=== PATIENT | male | born 1955 | race Caucasian/White ===

== ENCOUNTER 2016-07-22 09:38 | Emergency (ER) | payer OTHER ==
[~2016-07-22] VITALS: Ht 177.8 cm; Wt 79.0 kg
[~2016-07-22 09:38] MED LIST: APRI0.372 PO; LORTA5 PO
[2016-07-22 09:41] VITALS: BP 126/89; PULSE 81; RESP 16; TEMP 97.8; O2SAT 97
[2016-07-22] MEDS ORDERED: APRI0.372 PO (09:58)
[2016-07-22] MEDS ORDERED: SODIUM CHLOR 0.9% 1000 ML INJ 1,000 ML IV SCH (10:15)
[2016-07-22] MEDS ORDERED: PANTOPRAZOLE SODIUM 40 MG VIAL IV PUSH ONE (10:15)
[2016-07-22] MEDS ORDERED: ONDANSETRON HCL 4 MG/2 ML VIAL IV PUSH ONE (10:15)
--- NOTE | 2016-07-22 10:23 | PD ---
HPI Chief Complaint: GI Complaint Time Seen by Provider: 09:52 Travel History International Travel<30 days: No Contact w/Intl Traveler<30days: No Traveled to known affect area: No History of Present Illness HPI 61-year-old male complains of dizziness, blurred vision, chest pain and abdominal pain. Patient states that he started having diarrhea with dark stool for the past 6 days. Patient started having dizziness chest pain and abdominal pain this morning. Patient states that the dizziness is transient this morning and with low vision. Patient states that he has some wiggling lines in front of his eyes also. Patient states that the blurred vision got better. Patient started having substernal chest discomfort this morning. Patient denies any pain radiation. Patient denies palpitation or diaphoresis. Patient started having abdominal cramping mid abdomen with nausea vomiting this morning. Patient denies any fever chills. Patient denies any dysuria or frequency. Patient denies any back pain. Patient has history of colitis in the past. Patient states that he was diagnosed with Campylobacter infection in the past. PFSH Past Medical History Arthritis: No Blood Disorders: No Anxiety: No Depression: No Heart Rhythm Problems: No Cancer: No Cardiac Catheterization: Yes Cardiovascular Problems: Yes (R CAROTID ANGIOPLASTY) High Cholesterol: No Chemotherapy: No Chest Pain: No Congestive Heart Failure: No Cerebrovascular Accident: No Coronary Artery Disease: Yes ("1996,angio balloon") Diminished Hearing: No Endocrine: No Gastrointestinal Disorders: Yes (GALL STONES/ COLITIS) Genitourinary: No Headaches: No Hypertension: No Immune Disorder: No Musculoskeletal: Yes ("problems with L2,L3 ,discs and bulging disc lower back"N , RIGHT KNEE PAIN) Neurologic: No Psychiatric: No Respiratory: No Integumentary: Yes (HX OF GLEZ SKIN GRAFTING) Immunizations Current: No Migraines: No Myocardial Infarction: No Radiation Therapy: No Seizures: No Influenza Vaccination: No PNEUMOCCOCAL Vaccine (Year): 2 Past Surgical History Abdominal Surgery: Yes (intussusception) AICD: No Appendectomy: Yes Arteriovenous Shunt: No Cardiac Surgery: No Cholecystectomy: Yes Ear Surgery: No Endocrine Surgery: No Eye Surgery: No Genitourinary Surgery: No Gynecologic Surgery: No Insulin Pump: No Joint Replacement: No Neurologic Surgery: No Oral Surgery: Yes Pacemaker: No Thoracic Surgery: No Other Surgery: Yes ("skin grafts from right thigh to 2nd,3rd,4rth & 5th digits of left hand") Social History Alcohol Use: Yes (OCCASSIONAL-beer, mix drinks) Tobacco Use: No (quit 20 yrs ago) Substance Use: No Allergies-Medications (Allergen,Severity, Reaction): Coded Allergies: No Known Allergies (Verified , 07/22/16) Reported Meds & Prescriptions Reported Meds & Active Scripts Active Reported Apriso (Mesalamine) 0.375 Gm Caper 1 Gm PO DAILY Review of Systems General / Constitutional: No: Fever Eyes: Positive: Blurred Vision, No: Visual changes HENT: No: Headaches Cardiovascular: Positive: Chest Pain or Discomfort Respiratory: No: Shortness of Breath Gastrointestinal: Positive: Nausea, Vomiting, Diarrhea, Abdominal Pain Genitourinary: No: Dysuria Musculoskeletal: No: Pain Skin: No Rash Neurologic: No: Weakness Psychiatric: No: Depression Endocrine: No: Polydipsia Hematologic/Lymphatic: No: Easy Bruising Physical Exam Narrative GENERAL: Well-nourished, well-developed patient. SKIN: Focused skin assessment warm/dry. HEAD: Normocephalic. EYES: No scleral icterus. No injection or drainage. NECK: Supple, trachea midline. No JVD or lymphadenopathy. CARDIOVASCULAR: Regular rate and rhythm without murmurs, gallops, or rubs. RESPIRATORY: Breath sounds equal bilaterally. No accessory muscle use. GASTROINTESTINAL: Abdomen soft, nondistended. Patient has mild tenderness on palpation epigastric and lower abdomen. No rebound tenderness. No mass. Rectal exam Hemoccult trace positive. MUSCULOSKELETAL: No cyanosis, or edema. BACK: Nontender without obvious deformity. No CVA tenderness. Neurologic exam normal. Data Data Last Documented VS Vital Signs Date Time Temp Pulse Resp B/P Pulse Ox O2 Delivery O2 Flow Rate FiO2 07/22/16 10:56 74 16 150/92 96 Room Air 07/22/16 09:41 97.8 Orders Electrocardiogram (07/22/16 10:15) Complete Blood Count With Diff (07/22/16 10:15) Comprehensive Metabolic Panel (07/22/16 10:15) Creatine Kinase (Cpk) (07/22/16 10:15) Troponin I (07/22/16 10:15) Prothrombin Time / Inr (Pt) (07/22/16 10:15) Act Partial Throm Time (Ptt) (07/22/16 10:15) Lipase (07/22/16 10:15) Urinalysis - C+S If Indicated (07/22/16 10:15) Chest, Single Ap (07/22/16 10:15) Ct Abd/Pel W Iv Contrast(Rout) (07/22/16 10:15) Iv Access Insert/Monitor (07/22/16 10:15) Ecg Monitoring (07/22/16 10:15) Oximetry (07/22/16 10:15) Sodium Chlor 0.9% 1000 Ml Inj (Ns 1000 M (07/22/16 10:15) Pantoprazole Inj (Protonix Inj) (07/22/16 10:15) Ondansetron Inj (Zofran Inj) (07/22/16 10:15) Iohexol 350 Inj (Omnipaque 350 Inj) (07/22/16 11:31) Labs Laboratory Tests Test 07/22/16 10:00 White Blood Count 7.9 TH/MM3 Red Blood Count 4.41 MIL/MM3 Hemoglobin 14.3 GM/DL Hematocrit 42.1 % Mean Corpuscular Volume 95.4 FL Mean Corpuscular Hemoglobin 32.4 PG Mean Corpuscular Hemoglobin 34.0 % Concent Red Cell Distribution Width 12.9 % Platelet Count 147 TH/MM3 Mean Platelet Volume 9.4 FL Neutrophils (%) (Auto) 71.2 % Lymphocytes (%) (Auto) 15.4 % Monocytes (%) (Auto) 9.6 % Eosinophils (%) (Auto) 3.6 % Basophils (%) (Auto) 0.2 % Neutrophils # (Auto) 5.6 TH/MM3 Lymphocytes # (Auto) 1.2 TH/MM3 Monocytes # (Auto) 0.8 TH/MM3 Eosinophils # (Auto) 0.3 TH/MM3 Basophils # (Auto) 0.0 TH/MM3 CBC Comment DIFF FINAL Differential Comment Prothrombin Time 11.0 SEC Prothromb Time International 1.0 RATIO Ratio Activated Partial 29.4 SEC Thromboplast Time Sodium Level 142 MEQ/L Potassium Level 3.9 MEQ/L Chloride Level 105 MEQ/L Carbon Dioxide Level 29.0 MEQ/L Anion Gap 8 MEQ/L Blood Urea Nitrogen 17 MG/DL Creatinine 0.92 MG/DL Estimat Glomerular Filtration 83 ML/MIN Rate Random Glucose 92 MG/DL Calcium Level 8.5 MG/DL Total Bilirubin 0.6 MG/DL Aspartate Amino Transf 20 U/L (AST/SGOT) Alanine Aminotransferase 31 U/L (ALT/SGPT) Alkaline Phosphatase 69 U/L Total Creatine Kinase 93 U/L Troponin I LESS THAN 0.02 NG/ML Total Protein 7.2 GM/DL Albumin 3.5 GM/DL Lipase 242 U/L MDM Medical Decision Making Medical Screen Exam Complete: Yes Emergency Medical Condition: Yes Interpretation(s) 10:58 AM. CBC within normal limit. CMP within normal limits. Cardiac enzymes are normal. 11:55 AM. Last Impressions Chest X-Ray 07/22/16 1015 Signed Impressions: Service Date/Time: , July 22, 2016 10:24 - CONCLUSION: No acute disease. Akin Godoy MD 11:[address] scan abdomen and pelvis shows mild acute diverticulitis involving the distal descending colon without pericolic abscess. Differential Diagnosis Differential diagnosis including viral syndrome, angina, MO, PE, pneumothorax, gastritis, PUD, pancreatitis, cholecystitis, colitis, UTI, pyelonephritis, nephrolithiasis, electrolyte imbalance, dehydration, GI bleed. Narrative Course 61-year-old male with chest pain, abdominal pain, dizziness and blurred vision. Normal saline solution 100 cc an hour. Protonix 40 mg IV. Zofran 4 mg IV. Levaquin 750 mg by mouth given. HemaPrompt Point of Care Internal Pos. & Neg. Controls: Passed Fecal Specimen Occult Blood: Positive Diagnosis Primary Impression: Acute diverticulitis Additional Impression: Atypical chest pain Patient Instructions: General Instructions Additional Instructions: Take medications as directed. Follow-up with personal physician and GI specialist. Return if persistent worse. Return immediately if increasing chest pain or shortness of breath. Med/Other Pt SpecificInfo: Prescription(s) given Scripts Hydrocodone-Acetaminophen ([place])5-325 mg Tab1 Tab PO Q6H PRN (PAIN) #20 TAB Ref 0 Prov:Lc Guevara MD 07/22/16 Metronidazole (Flagyl)500 Mg [id number] Mg PO TID #30 TAB Ref 0 Prov:Lc Guevara MD 07/22/16 Ciprofloxacin (Cipro)500 Mg [id number] Mg PO BID #20 TAB Ref 0 Prov:Lc Guevara MD 07/22/16 Disposition: 01 DISCHARGE HOME Condition: Stable Lc Guevara MD Jul 22, 2016 10:23
[2016-07-22 10:35] LABS: AUTOMATED NEUTROPHIL # 5.6 TH/MM3 (1.8-7.7); BASOPHIL % 0.2 % (0.0-2.0); EOSINOPHIL # 0.3 TH/MM3 (0-0.4); EOSINOPHIL % 3.6 % (0.0-4.0); HEMATOCRIT 42.1 % (39.0-51.0); HEMO FLAGS DIFF FINAL; LYMPH % 15.4 % (9.0-44.0); LYMPHOCYTE # 1.2 TH/MM3 (1.0-4.8); MEAN CELL VOLUME 95.4 FL (80.0-100.0); MEAN CORPUSCULAR HEMOGLOBIN 32.4 PG (27.0-34.0); MONO % 9.6 % (0.0-8.0); NEUT % 71.2 % (16.0-70.0); PLATELET COUNT 147 TH/MM3 (150-450); RED BLOOD COUNT 4.41 MIL/MM3 (4.50-5.90); RED CELL DISTRIBUTION WIDTH 12.9 % (11.6-17.2); WHITE BLOOD COUNT 7.9 TH/MM3 (4.0-11.0)
--- NOTE | 2016-07-22 10:40 | RADHPO ---
EXAM DATE/TIME: 07/22/2016 10:24 [facility] COMPARISON: CHEST SINGLE AP, April 24, 2015, 16:51. INDICATIONS : Chest pain. MEDICAL HISTORY : Methicillin-resistant Staphylococcus aureus. C3 & C4 bulging discs. Coronary artery disease. Gallston es. Colitis. Right knee pain. SURGICAL HISTORY : Cholecystectomy. Appendectomy.Right carotid angioplasty. Angio balloon.Intussusception. Left shoulder pinning. Blood transfusions. Skin grafts from right thigh to the digits of left hand, ENCOUNTER: Initial ACUITY: 1 day PAIN SCORE: 7/10 LOCATION: center of chest FINDINGS: A single view of the chest demonstrates the lungs to be symmetrically aerated without evidence of mas s, infiltrate or effusion. The cardiomediastinal contours are unremarkable. Osseous structures are intact. CONCLUSION: No acute disease. Akin Godoy MD on July 22, 2016 at 10:37 Board Certified Radiologist. This report was verified electronically.
[2016-07-22 10:45] LABS: CHLORIDE 105 MEQ/L (98-107); POTASSIUM 3.9 MEQ/L (3.5-5.1); SODIUM (NA) 142 MEQ/L (136-145)
[2016-07-22 10:48] LABS: ANION GAP 8 MEQ/L (5-15); APTT (PATIENT) 29.4 SEC (24.3-30.1); BLOOD UREA NITROGEN 17 MG/DL (7-18)
[2016-07-22 10:51] LABS: ALT (GPT) 31 U/L (12-78); AST (GOT) 20 U/L (15-37); GLOMERULAR FILTRATION RATE 83 ML/MIN (>89)
[2016-07-22 10:52] LABS: TOTAL BILIRUBIN ADULT 0.6 MG/DL (0.2-1.0)
[2016-07-22 10:54] VITALS: RESP 18; O2SAT 98
[2016-07-22 10:54] LABS: ALKALINE PHOSPHATASE 69 U/L (45-117)
[2016-07-22 10:55] LABS: CREATINE KINASE 93 U/L (39-308)
[2016-07-22 10:56] VITALS: BP 150/92; PULSE 74; RESP 16; O2SAT 96
[2016-07-22] MEDS ORDERED: IOHEXOL 350 MG/ML 10 ML VIAL (for RAD DIAG) IV ONE (11:31)
--- NOTE | 2016-07-22 11:52 | RADHPO ---
EXAM DATE/TIME: 07/22/2016 11:15 [facility] COMPARISON: No previous studies available for comparison. INDICATIONS : Mid abdominal pain. Nausea, vomiting and diarrhea. IV CONTRAST: 85 cc Omnipaque 350 (iohexol) IV ORAL CONTRAST: No oral contrast ingested. RADIATION DOSE: 10.66 CTDIvol (mGy) MEDICAL HISTORY : Colitis. Gall stones. SURGICAL HISTORY : Appendectomy. Cholecystectomy. ENCOUNTER: Initial ACUITY: 4 - 6 days PAIN SCALE: 4/10 LOCATION: Mid abdomen TECHNIQUE: Volumetric scanning of the abdomen and pelvis was performed. Using automated exposure control and ad justment of the mA and/or kV according to patient size, radiation dose was kept as low as reasonably achievable to obtain optimal diagnostic quality images. FINDINGS: LOWER LUNGS: The visualized lower lungs are clear. LIVER: Homogeneous density without lesion. There is no dilation of the biliary tree. No calcified gallston es. SPLEEN: Normal size without lesion. PANCREAS: Within normal limits. KIDNEYS: Normal in size and shape. There is no mass, stone or hydronephrosis. ADRENAL GLANDS: Within normal limits. VASCULAR: There is no aortic aneurysm. BOWEL/MESENTERY: Mild acute diverticulitis is noted involving the distal descending colon. No pericolic abscess is not ed. ABDOMINAL WALL: Within normal limits. The patient is status post bilateral inguinal hernia repairs. RETROPERITONEUM: There is no lymphadenopathy. BLADDER: No wall thickening or mass. REPRODUCTIVE: Within normal limits. INGUINAL: There is no lymphadenopathy or hernia. MUSCULOSKELETAL: Mild degenerative changes and scoliosis of the lumbar spine are noted. CONCLUSION: 1. Mild acute diverticulitis involving the distal descending colon without pericolic abscess. 2. Mild degenerative changes and scoliosis of the lumbar spine. Jono Marroquin MD on July 22, 2016 at 11:44 Board Certified Radiologist. This report was verified electronically.
[2016-07-22] MEDS ORDERED: LEVOFLOXACIN 750 MG TAB PO ONE (12:00)
[2016-07-22] MEDS ORDERED: NORC5TAB PO (12:09)
[2016-07-22] MEDS ORDERED: CIPR-9 PO (12:09)
[2016-07-22] MEDS ORDERED: METR-1 PO (12:09)
[2016-07-22 12:28] VITALS: BP 129/85; PULSE 77; RESP 16; O2SAT 99
--- NOTE | 2016-07-23 22:59 | EKG ---
Date Performed: 07/22/2016 Time Performed: 09:48:51 PTAGE: 61 years EKG: Sinus rhythm WITH SINUS ARRHYTHMIA POSSIBLE INFERIOR MYOCARDIAL INFARCTION BORDERLINE ECG INTERPRETATION BASED ON A DEFAULT AGE OF 39 YEARS NO PREVIOUS TRACING DOCTOR: Annalisa Kc Interpretating Date/Time 07/23/2016 22:58:35
== END 2016-07-22 13:01 | disposition home or self-care (01) ==
LOC: PHED 09:38
DX: K57.92 Diverticulitis of intestine, part unspecified, without perforation or abscess without bleeding (principal); R07.89 Other chest pain; Z90.49 Acquired absence of other specified parts of digestive tract; I25.10 Atherosclerotic heart disease of native coronary artery without angina pectoris
CPT/HCPCS: 71010; 74177; 80053; 82550; 83690; 84484; 85025; 85610; 85730; 93005; 96361; 96374; 96375; 99285; C9113; J2405; J7030; Q9967

== ENCOUNTER 2016-08-12 11:10 | Emergency (ER) | payer OTHER ==
[~2016-08-12] VITALS: Ht 175.3 cm; Wt 79.5 kg
[~2016-08-12 11:10] MED LIST changes: +CIPR-9 PO; -LORTA5 PO; +METR-1 PO; +NORC5TAB PO
[2016-08-12 11:21] VITALS: BP 135/87; PULSE 92; RESP 16; TEMP 98.1; O2SAT 95
[2016-08-12] MEDS ORDERED: SODIUM CHLOR 0.9% 1000 ML INJ 1,000 ML IV SCH (11:39)
--- NOTE | 2016-08-12 11:44 | PD ---
HPI Chief Complaint: GI Complaint Time Seen by Provider: 11:27 Travel History International Travel<30 days: No Contact w/Intl Traveler<30days: No Traveled to known affect area: No History of Present Illness HPI The patient is a 61-year-old male who presents to the emergency department for left lower quadrant abdominal pain, nausea, vomiting, and rectal bleeding. The patient has a history of ulcerative colitis, underwent colonoscopy in 2012. The patient was seen in emergency department several weeks ago for similar symptoms and was diagnosed with diverticulitis. The patient took a course of Cipro and Flagyl which did improve his symptoms, however, continue to have some bleeding. The patient states he had some prednisone at home from her previous inflammation of ulcerative colitis and took steroids, unknown dose, and his symptoms did improve. Now he notes dark rectal bleeding with a few intermittent clots interspersed with stools, worse in the morning. He continues to have left lower quadrant abdominal pain without any fever. 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 Symptoms are moderate, similar to previous episodes of ulcerative colitis, and there are no current alleviating factors. PFSH Past Medical History Arthritis: No Blood Disorders: No Anxiety: No Depression: No Heart Rhythm Problems: No Cancer: No Cardiac Catheterization: Yes Cardiovascular Problems: Yes (R CAROTID ANGIOPLASTY) High Cholesterol: No Chemotherapy: No Chest Pain: No Congestive Heart Failure: No Cerebrovascular Accident: No Coronary Artery Disease: Yes ("1997,angio balloon") Diminished Hearing: No Endocrine: No Gastrointestinal Disorders: Yes (GALL STONES/ COLITIS) Genitourinary: No Headaches: No Hypertension: No Immune Disorder: No Musculoskeletal: Yes ("problems with L2,L3 ,discs and bulging disc lower back"N , RIGHT KNEE PAIN) Neurologic: No Psychiatric: No Respiratory: No Integumentary: Yes (HX OF GLEZ SKIN GRAFTING) Immunizations Current: No Migraines: No Myocardial Infarction: No Radiation Therapy: No Seizures: No PNEUMOCCOCAL Vaccine (Year): 2 Past Surgical History Abdominal Surgery: Yes (intussusception) AICD: No Appendectomy: Yes Arteriovenous Shunt: No Cardiac Surgery: No Cholecystectomy: Yes Ear Surgery: No Endocrine Surgery: No Eye Surgery: No Genitourinary Surgery: No Gynecologic Surgery: No Insulin Pump: No Joint Replacement: No Neurologic Surgery: No Oral Surgery: Yes Pacemaker: No Thoracic Surgery: No Other Surgery: Yes ("skin grafts from right thigh to 2nd,3rd,4rth & 5th digits of left hand") Social History Alcohol Use: Yes (OCCASSIONAL-beer, mix drinks) Tobacco Use: No (quit 20 yrs ago) Substance Use: No Allergies-Medications (Allergen,Severity, Reaction): Coded Allergies: No Known Allergies (Verified , 08/12/16) Reported Meds & Prescriptions Reported Meds & Active Scripts Active Reported Apriso (Mesalamine) 0.375 Gm Caper 1 Gm PO DAILY Review of Systems Except as stated in HPI: all other systems reviewed are Neg General / Constitutional: No: Fever Cardiovascular: No: Chest Pain or Discomfort Respiratory: No: Shortness of Breath Gastrointestinal: Positive: Nausea, Vomiting, Abdominal Pain, Hematochezia, No : Diarrhea Musculoskeletal: No: Myalgias, Arthralgias Physical Exam Narrative GENERAL: Awake, alert, pleasant 61-year-old male who appears his stated age and is in no acute respiratory distress. SKIN: Focused skin assessment warm/dry. HEAD: Atraumatic. Normocephalic. EYES: Pupils equal and round. No scleral icterus. No injection or drainage. ENT: No nasal bleeding or discharge. Mucous membranes pink and moist. NECK: Trachea midline. No JVD. CARDIOVASCULAR: Regular rate and rhythm. No murmur appreciated. RESPIRATORY: No accessory muscle use. Clear to auscultation. Breath sounds equal bilaterally. GASTROINTESTINAL: Abdomen soft, tender palpation left lower quadrant. No rebound tenderness. Rectal: The exam was performed in the presence of a nurse. External examination reveals no visible fissures or external hemorrhoids. Digital rectal exam reveals no gross blood. Guaiac negative. MUSCULOSKELETAL: No obvious deformities. No clubbing. No cyanosis. No edema. NEUROLOGICAL: Awake and alert. No obvious cranial nerve deficits. Motor grossly within normal limits. Normal speech. PSYCHIATRIC: Appropriate mood and affect; insight and judgment normal. Data Data Last Documented VS Vital Signs Date Time Temp Pulse Resp B/P Pulse Ox O2 Delivery O2 Flow Rate FiO2 08/12/16 12:34 98 08/12/16 11:21 98.1 92 16 135/87 Orders Complete Blood Count With Diff (08/12/16 11:39) Comprehensive Metabolic Panel (08/12/16 11:39) Lipase (08/12/16 11:39) Lactic Acid (08/12/16 11:39) Prothrombin Time / Inr (Pt) (08/12/16 11:39) Act Partial Throm Time (Ptt) (08/12/16 11:39) Ct Abd/Pel W Iv Contrast(Rout) (08/12/16 11:39) Iv Access Insert/Monitor (08/12/16 11:39) Ecg Monitoring (08/12/16 11:39) Oximetry (08/12/16 11:39) Morphine Inj (Morphine Inj) (08/12/16 11:45) Ondansetron Inj (Zofran Inj) (08/12/16 11:45) Sodium Chlor 0.9% 1000 Ml Inj (Ns 1000 M (08/12/16 11:39) Sodium Chloride 0.9% Flush (Ns Flush) (08/12/16 11:45) Morphine Inj (Morphine Inj) (08/12/16 12:15) Iohexol 350 Inj (Omnipaque 350 Inj) (08/12/16 13:04) Labs Laboratory Tests Test 08/12/16 12:08 White Blood Count 7.4 TH/MM3 Red Blood Count 4.08 MIL/MM3 Hemoglobin 13.6 GM/DL Hematocrit 39.2 % Mean Corpuscular Volume 96.0 FL Mean Corpuscular Hemoglobin 33.3 PG Mean Corpuscular Hemoglobin 34.7 % Concent Red Cell Distribution Width 13.9 % Platelet Count 162 TH/MM3 Mean Platelet Volume 8.4 FL Neutrophils (%) (Auto) 75.4 % Lymphocytes (%) (Auto) 13.5 % Monocytes (%) (Auto) 7.2 % Eosinophils (%) (Auto) 3.1 % Basophils (%) (Auto) 0.8 % Neutrophils # (Auto) 5.6 TH/MM3 Lymphocytes # (Auto) 1.0 TH/MM3 Monocytes # (Auto) 0.5 TH/MM3 Eosinophils # (Auto) 0.2 TH/MM3 Basophils # (Auto) 0.1 TH/MM3 CBC Comment AUTO DIFF Differential Comment AUTO DIFF CONFIRMED Platelet Estimate NORMAL Platelet Morphology Comment NORMAL Red Cell Morphology Comment NORMAL Prothrombin Time 11.4 SEC Prothromb Time International 1.0 RATIO Ratio Activated Partial 28.5 SEC Thromboplast Time Sodium Level 142 MEQ/L Potassium Level 3.6 MEQ/L Chloride Level 107 MEQ/L Carbon Dioxide Level 26.3 MEQ/L Anion Gap 9 MEQ/L Blood Urea Nitrogen 11 MG/DL Creatinine 0.89 MG/DL Estimat Glomerular Filtration 87 ML/MIN Rate Random Glucose 113 MG/DL Lactic Acid Level 1.7 mmol/L Calcium Level 8.7 MG/DL Total Bilirubin 0.5 MG/DL Aspartate Amino Transf 21 U/L (AST/SGOT) Alanine Aminotransferase 29 U/L (ALT/SGPT) Alkaline Phosphatase 61 U/L Total Protein 6.6 GM/DL Albumin 3.1 GM/DL Lipase 248 U/L MDM Medical Decision Making Medical Screen Exam Complete: Yes Emergency Medical Condition: Yes Medical Record Reviewed: Yes Interpretation(s) Last Impressions Abdomen/Pelvis CT 08/12/16 1139 Signed Impressions: Service Date/Time: , August 12, 2016 12:49 - CONCLUSION: 1. The proximal sigmoid colon remains abnormal with a mild wall thickening, diverticulosis, and mild surrounding inflammatory change suggesting a mild acute diverticulitis or colitis. No abscess or free air is present. There are a few mildly enlarged lymph nodes in the adjacent sigmoid mesocolon which is atypical for acute inflammation. Therefore, suggest followup imaging to confirm resolution and suggest direct visualization with endoscopy once patient's condition permits to evaluate for any underlying lesion. 2. Nonacute findings include moderate to severe atherosclerotic disease and mild splenomegaly. Wayne Whitfield MD Laboratory Tests Test 08/12/16 12:08 White Blood Count 7.4 TH/MM3 Red Blood Count 4.08 MIL/MM3 Hemoglobin 13.6 GM/DL Hematocrit 39.2 % Mean Corpuscular Volume 96.0 FL Mean Corpuscular Hemoglobin 33.3 PG Mean Corpuscular Hemoglobin 34.7 % Concent Red Cell Distribution Width 13.9 % Platelet Count 162 TH/MM3 Mean Platelet Volume 8.4 FL Neutrophils (%) (Auto) 75.4 % Lymphocytes (%) (Auto) 13.5 % Monocytes (%) (Auto) 7.2 % Eosinophils (%) (Auto) 3.1 % Basophils (%) (Auto) 0.8 % Neutrophils # (Auto) 5.6 TH/MM3 Lymphocytes # (Auto) 1.0 TH/MM3 Monocytes # (Auto) 0.5 TH/MM3 Eosinophils # (Auto) 0.2 TH/MM3 Basophils # (Auto) 0.1 TH/MM3 CBC Comment AUTO DIFF Prothrombin Time 11.4 SEC Prothromb Time International 1.0 RATIO Ratio Activated Partial 28.5 SEC Thromboplast Time Sodium Level 142 MEQ/L Potassium Level 3.6 MEQ/L Chloride Level 107 MEQ/L Carbon Dioxide Level 26.3 MEQ/L Anion Gap 9 MEQ/L Blood Urea Nitrogen 11 MG/DL Creatinine 0.89 MG/DL Estimat Glomerular Filtration 87 ML/MIN Rate Random Glucose 113 MG/DL Lactic Acid Level 1.7 mmol/L Calcium Level 8.7 MG/DL Total Bilirubin 0.5 MG/DL Aspartate Amino Transf 21 U/L (AST/SGOT) Alanine Aminotransferase 29 U/L (ALT/SGPT) Alkaline Phosphatase 61 U/L Total Protein 6.6 GM/DL Albumin 3.1 GM/DL Lipase 248 U/L Differential Diagnosis Differential diagnosis includes diverticulosis, diverticulitis, ulcerative colitis exacerbation, upper GI bleed, internal hemorrhoids, diverticular abscess. Narrative Course IV was established, labs are drawn and sent, and the patient was placed on cardiac telemetry monitoring and continuous pulse oximetry monitoring. Rectal exam was performed, no gross blood, guaiac negative. The patient was administered morphine, Zofran, and IV fluids. CT of the abdomen and pelvis with IV contrast was obtained. Patient's white count is normal, hemoglobin is normal, lactic acid is within normal limits. I reviewed the CT findings consistent with colitis. I discussed the patient with the nuclear weapons specialist on -call, Dr. Cevallos, who is on-call for his nuclear weapons specialist, Dr. Emery at [phone]. We discussed the CT findings and lab findings, after discussion was agreed the patient could be treated on an outpatient basis as his pain was currently 0/10. After discussion it was agreed the patient would receive Asacol HD 800 mg 3 times a day in the morning with prednisone 40 mg daily in the morning for 3 days. If he is worse he was to call the GI's office after 3 days, is better he was to take 30 mg of steroids for 3 days and then call the office for an appointment late next week. The patient was provided a copy of his CT results and lab results at discharge. He will also be provided pain medications and antiemetics. He is advised to return if symptoms worsen or progress. HemaPrompt Point of Care Internal Pos. & Neg. Controls: Passed Fecal Specimen Occult Blood: Negative Diagnosis Primary Impression: Colitis Patient Instructions: General Instructions Additional Instructions: Asacol HD her milligrams 3 times a day morning with prednisone 40 mg in the morning for 3 days. If symptoms improve take prednisone 30 mg for 3 days and then call the office for an appointment. If no improvement after 3 days call the gastroenterology office for an immediate appointment. Please provide the patient a copy of his CT results and lab results at discharge for outpatient follow-up with his nuclear weapons specialist. Return immediately for progressing symptoms. Med/Other Pt SpecificInfo: Prescription(s) given Scripts Ondansetron Odt (Zofran Odt)4 Mg Tab4 Mg SL Q6HR PRN (Nausea/Vomiting) #7 TAB Ref 0 Prov:Wicho Thompson MD 08/12/16 Hydrocodone-Acetaminophen ([place])5-325 mg Tab1 Tab PO Q6H PRN (PAIN) #15 TAB Ref 0 Prov:Wicho Thompson MD 08/12/16 Prednisone (Deltasone)20 Mg Tab40 Mg PO DAILY 7 Days Ref 0 Prov:Wicho Thompson MD 08/12/[address] (Asacol HD)800 Mg Plh633 Mg PO TID 14 Days Ref 0 Swallow whole. Take on an empty stomach. Prov:Wicho Thompson MD 08/12/16 Disposition: 01 DISCHARGE HOME Condition: Stable Wicho Thompson MD Aug 12, 2016 11:44
[2016-08-12] MEDS ORDERED: SODIUM CHLORIDE 0.9% FLUSH 10 ML FLUSH IV FLUSH PRN (11:45)
[2016-08-12] MEDS ORDERED: MORPHINE SULFATE 4 MG/ML INJ IV PUSH ONE (11:45)
[2016-08-12] MEDS ORDERED: ONDANSETRON HCL 4 MG/2 ML VIAL IVP ONE (11:45)
[2016-08-12 12:12] LABS: AUTOMATED NEUTROPHIL # 5.6 TH/MM3 (1.8-7.7); BASOPHIL # 0.1 TH/MM3 (0-0.2); BASOPHIL % 0.8 % (0.0-2.0); EOSINOPHIL # 0.2 TH/MM3 (0-0.4); EOSINOPHIL % 3.1 % (0.0-4.0); HEMATOCRIT 39.2 % (39.0-51.0); LYMPH % 13.5 % (9.0-44.0); MEAN CORPUSCULAR HEMOGLOBIN 33.3 PG (27.0-34.0); MEAN CORPUSCULAR HGB CONC 34.7 % (32.0-36.0); MONO % 7.2 % (0.0-8.0); NEUT % 75.4 % (16.0-70.0); PLATELET COUNT 162 TH/MM3 (150-450); RED BLOOD COUNT 4.08 MIL/MM3 (4.50-5.90); RED CELL DISTRIBUTION WIDTH 13.9 % (11.6-17.2); WHITE BLOOD COUNT 7.4 TH/MM3 (4.0-11.0)
[2016-08-12] MEDS ORDERED: MORPHINE SULFATE 8 MG/ML INJ IV PUSH ONE (12:15)
[2016-08-12 12:21] LABS: CHLORIDE 107 MEQ/L (98-107); POTASSIUM 3.6 MEQ/L (3.5-5.1); SODIUM (NA) 142 MEQ/L (136-145)
[2016-08-12 12:25] LABS: ANION GAP 9 MEQ/L (5-15); BICARBONATE 26.3 MEQ/L (21.0-32.0); BLOOD UREA NITROGEN 11 MG/DL (7-18)
[2016-08-12 12:28] LABS: ALT (GPT) 29 U/L (12-78); AST (GOT) 21 U/L (15-37); GLOMERULAR FILTRATION RATE 87 ML/MIN (>89)
[2016-08-12 12:29] LABS: TOTAL BILIRUBIN ADULT 0.5 MG/DL (0.2-1.0)
[2016-08-12 12:31] LABS: ALKALINE PHOSPHATASE 61 U/L (45-117)
[2016-08-12 12:34] VITALS: O2SAT 98
[2016-08-12 12:42] LABS: HEMO FLAGS AUTO DIFF
[2016-08-12 12:52] LABS: APTT (PATIENT) 28.5 SEC (24.3-30.1); PROTHROMBIN TIME - PATIENT 11.4 SEC (9.8-11.6)
[2016-08-12] MEDS ORDERED: IOHEXOL 350 MG/ML 10 ML VIAL (for RAD DIAG) IV ONE (13:04)
--- NOTE | 2016-08-12 13:23 | RADRPT ---
EXAM DATE/TIME: 08/12/2016 12:49 [place] COMPARISON: CT ABDOMEN & PELVIS W/O CONTRAST, September 06, 2015, 17:18. CT ABDOMEN & PELVIS W CONTRAST, July 22 7, 11:15. INDICATIONS : Left lower quadrant pain. Nausea, vomiting and rectal bleeding. IV CONTRAST: 85 cc Omnipaque 350 (iohexol) IV ORAL CONTRAST: No oral contrast ingested. RADIATION DOSE: 9.86 CTDIvol (mGy) MEDICAL HISTORY : Diverticulitis. SURGICAL HISTORY : Inguinal hernia repair. Appendectomy.Cholecystectomy. ENCOUNTER: Initial ACUITY: 2 weeks PAIN SCALE: 7/10 LOCATION: Left lower quadrant TECHNIQUE: Volumetric scanning of the abdomen and pelvis was performed. Using automated exposure control and ad justment of the mA and/or kV according to patient size, radiation dose was kept as low as reasonably achievable to obtain optimal diagnostic quality images. DICOM format image data is available electro nically for review and comparison. FINDINGS: LOWER LUNGS: The visualized lower lungs are clear. LIVER: Homogeneous density without lesion. There is no dilation of the biliary tree. No calcified gallston es. SPLEEN: Mildly enlarged measuring 14.4 cm in length. PANCREAS: Within normal limits. KIDNEYS: Normal in size and shape. There is no mass, stone or hydronephrosis. ADRENAL GLANDS: Within normal limits. VASCULAR: There is no aortic aneurysm. There is moderate to severe atherosclerotic disease. BOWEL/MESENTERY: Stomach and small bowel demonstrate no acute finding. Terminal ileum is normal. There is sigmoid dive rticulosis with mild wall thickening and subtle pericolic inflammatory change at the proximal sigmoid colon. There are a few mildly enlarged regional lymph nodes in the sigmoid mesocolon. No free air, f ree fluid, or abscess is present. ABDOMINAL WALL: Within normal limits. RETROPERITONEUM: There is no lymphadenopathy. BLADDER: No wall thickening or mass. REPRODUCTIVE: Within normal limits. INGUINAL: There is no lymphadenopathy or hernia. There are clips in the normal region. MUSCULOSKELETAL: Within normal limits for patient age. There are degenerative changes of the lumbar spine. CONCLUSION: 1. The proximal sigmoid colon remains abnormal with a mild wall thickening, diverticulosis, and mild surrounding inflammatory change suggesting a mild acute diverticulitis or colitis. No abscess or free air is present. There are a few mildly enlarged lymph nodes in the adjacent sigmoid mesocolon which is atypical for acute inflammation. Therefore, suggest followup imaging to confirm resolution and sug gest direct visualization with endoscopy once patient's condition permits to evaluate for any underly ing lesion. 2. Nonacute findings include moderate to severe atherosclerotic disease and mild splenomegaly. Wayne Whitfield MD on August 12, 2016 at 13:14 Board Certified Radiologist. This report was verified electronically.
[2016-08-12 13:37] LABS: PLATELET ESTIMATE SMEAR NORMAL (NORMAL); PLATELET MORPHOLOGY NORMAL (NORMAL); SCAN/DIFF AUTO DIFF CONFIRMED
[2016-08-12] MEDS ORDERED: NORC5TAB PO (13:53)
[2016-08-12] MEDS ORDERED: ASAC800T PO (13:53)
[2016-08-12] MEDS ORDERED: PRED-503 PO (13:53)
[2016-08-12] MEDS ORDERED: ZOFR4TAB3 SL (13:53)
[2016-08-12 14:31] VITALS: BP 141/83
== END 2016-08-12 14:52 | disposition home or self-care (01) ==
LOC: PHED 11:10
DX: K51.90 Ulcerative colitis, unspecified, without complications (principal)
CPT/HCPCS: 74177; 80053; 83605; 83690; 85025; 85610; 85730; 96361; 96374; 96375; 99285; J2270; J2405; J7030; Q9967